=== PATIENT | male | born 1965 | race Caucasian/White ===

== ENCOUNTER 2020-03-14 10:28 | Outpatient (REF) | payer OTHER, SELFPAY ==
[2020-03-14 14:32] LABS: Blood Urea Nitrogen 12 mg/dL (9-16); Estimated Glomerular Filt Rate > 60
== END 2020-03-14 10:29 | disposition home or self-care (01) ==
LOC: HO.10HDL 10:28
PROVIDERS: Visit Provider Otolaryngology
DX: Z01.812 Encounter for preprocedural laboratory examination (principal); J34.89 Other specified disorders of nose and nasal sinuses
CPT/HCPCS: 36415; 82565; 84520

== ENCOUNTER 2020-04-03 15:12 | Outpatient (REF) | payer OTHER, SELFPAY ==
--- NOTE | 2020-04-03 15:15 | CT_ITS ---
EXAMINATION: CT SOFT TISSUE NECK WITH CONTRAST CLINICAL INFORMATION: Nasopharyngeal lesion. COMPARISON: None TECHNIQUE: Following the intravenous administration of 100 mL of Omnipaque 350 intravenous contrast, helical imaging was performed in the axial plane with generation of coronal and sagittal reformatted images. This CT examination was performed using dose optimization techniques as appropriate, variously including the following: *Automated exposure control *Adjustment of mA and/or kV according to patient size (this includes techniques or standardized protocols for targeted exams where dose is matched to indication/reason for exam; i.e. extremities or head) *Use of iterative reconstruction technique DLP: 294 mGy-cm FINDINGS: There are dental amalgam-related artifacts in the oral cavity. There are bilateral shotty lymph nodes in level 2B and level 3 lymph nodes which appear benign. The largest lymph node in the submandibular space measures 8 mm on axial image 56/2. Similar lymph nodes in the right carotid bifurcation level 3, measure less than 8 mm on sagittal image 46/8. The parotid glands are homogeneous in attenuation. The submandibular glands are normal. No contour abnormality or pathologic enhancement is seen within the oral cavity or pharyngeal mucosal space. The nasal cavity and nasopharyngeal airway is widely patent. Bilateral turbinates are symmetrical. The nasal septum is midline. There are no nasopharyngeal, nasal cavity or oropharyngeal enhancing mass or mass effect seen. The airway is widely patent. There is no laryngeal mass or mass effect. The laryngeal airway is narrowed with no visible mass seen. It could be secondary to thickening bilateral aryepiglottic folds. The parapharyngeal fat is preserved. The carotid sheath vasculature opacify normally. No extra mucosal soft tissue mass or fluid collection is seen. No retropharyngeal fluid collection is seen. The thyroid gland is normal. The superior mediastinum is unremarkable. The lung apices are clear. There is a small 1.2 cm polyp or retention cyst lateral wall left maxillary sinus and a 9 mm polyp or retention cyst right maxillary sinus. The rest of the paranasal sinuses are well-aerated. The mastoid sinuses are aerated as well. The temporomandibular joints are normal. No periapical disease is identified. No osseous abnormalities are seen. The imaged portions of the brain parenchyma are unremarkable. CT/CT soft tissue neck w con IMPRESSION: Bilateral maxillary sinus polyp versus retention cyst. No nasopharyngeal or nasal cavity mass or airway compromise seen. There is narrowing of the laryngeal airway which could be secondary to thickening of aryepiglottic fold or edema. However no enhancing mass seen in this region There are benign lymph nodes in the neck. Recommend direct endoscopy
[2020-04-03] MEDS: iohexoL 350 MG/ML 100 ML INFUS..BTL IV (15:55)
== END 2020-04-03 15:13 | disposition home or self-care (01) ==
LOC: HO.CT 15:12
PROVIDERS: Visit Provider Otolaryngology
DX: J39.2 Other diseases of pharynx (principal)
CPT/HCPCS: 70491; Q9967